=== PATIENT | female | born 1995 | race Caucasian/White ===

== ENCOUNTER 2025-03-03 19:42 | Emergency (ER) | payer OTHER ==
[~2025-03-03] VITALS: Ht 162.6 cm; Wt 65.0 kg
[2025-03-03 20:28] VITALS: O2SAT 98
[2025-03-03 21:05] LABS: BASOPHILS % 0.6 % (0.0-2.0); EOSINOPHILS % 1.3 % (0.0-5.0); HEMATOCRIT. 38.7 % (36.0-48.0); LYMPHOCYTES % 18.2 % (20.0-50.0); MEAN CORPUSCULAR HEMOGLOBIN 30.1 pg (28.0-32.0); MEAN CORPUSCULAR HGB CONC 33.7 g/dL (31.0-37.0); MEAN CORPUSCULAR VOLUME 89.5 fL (81.0-99.0); MEAN PLATELET VOLUME 9.9 fl (7.4-10.4); MONOCYTES % 6.7 % (2.0-8.0); NEUTROPHILS % 73.2 % (40.0-76.0); PLATELET 216 x1000/uL (130-400); RED BLOOD CELL COUNT 4.33 mill/uL (4.2-5.4); RED CELL DISTRIBUTION WIDTH 14.1 % (11.6-14.6); WHITE BLOOD COUNT 9.7 x1000/uL (4.5-11.0)
[2025-03-03 21:11] LABS: CHLORIDE 107 mEq/L (98-107); POTASSIUM 3.6 mEq/L (3.5-5.1); SODIUM 141 mEq/L (136-145)
[2025-03-03 21:12] LABS: CARBON DIOXIDE 25 mEq/L (21-32)
[2025-03-03 21:13] LABS: CALCIUM 9.3 mg/dL (8.7-10.4)
[2025-03-03 21:17] LABS: CREATININE 0.8 mg/dL (0.6-1.0); GLUCOSE 89 mg/dL (70-105); HCG SCREEN NEGATIVE
[2025-03-03 21:18] LABS: UREA NITROGEN BLOOD 15 mg/dL (9-23)
[2025-03-03 21:19] LABS: ALANINE AMINOTRANSFERASE 109 IU/L (10-49); ALBUMIN 4.6 g/dL (3.2-4.8); ASPARTATE AMINOTRANSFERASE 191 IU/L (<34)
[2025-03-03 21:20] LABS: BILIRUBIN DIRECT 0.2 mg/dL (<=3.0); BILIRUBIN TOTAL 0.5 mg/dL (0.1-1.0); PROTEIN TOTAL 7.6 g/dL (6.0-8.3)
[2025-03-03] MEDS: SODIUM CHLORIDE 0.9% 1,000 ML IV ONE (22:29)
[2025-03-03] MEDS: MORPHINE SULFATE 2 MG/ML INJ (NOT FOR IM USE) IV NR (22:29)
[2025-03-03] MEDS: ONDANSETRON HCL 4MG/2ML INJ IV NR (22:29)
[2025-03-03 23:50] VITALS: BP 125/75; PULSE 82; RESP 16; TEMP 36.7; O2SAT 98
[2025-03-04] MEDS ORDERED: IOHEXOL-300 100 ML BOTTLE ONE (02:20)
== END 2025-03-03 23:58 | disposition home or self-care (01) ==
LOC: ER 19:42
DX: R10.13 Epigastric pain (principal); R74.8 Abnormal levels of other serum enzymes
CPT/HCPCS: 99285; 74177; 96374; 96361; 96375; 80076; 80048; 84703; 83690; 85025; 36415; Q9967; J2405; J2270